=== PATIENT | male | born 1950 | race African-American/Black ===

== ENCOUNTER 2018-10-30 13:10 | Outpatient (CLI) | payer OTHER ==
--- NOTE | 2018-10-30 14:26 | Diagnostic Imaging Report ---
Indication: Cough Technique: XRAY Chest 2v Comparison: 11/16/2011 Findings: Heart size and mediastinal contours stable compared to the prior exam. There is unchanged linear opacity in the right midlung. No new focal airspace consolidation to suggest pneumonia as questioned clinically. No evidence of pleural effusion or pneumothorax. There is a 1.2 cm apparent rounded density in the upper right lung on frontal view only which may be artifactual related to overlying anterior first rib. No acute osseous abnormality identified. IMPRESSION: Subtle linear atelectasis or scarring in the right midlung. Otherwise no definite focal airspace consolidation. No pleural effusion or pneumothorax. Apparent 1.2 cm rounded density in the right upper lung on frontal view which may be artifactual related to overlying anterior first rib. Consider CT chest to exclude the possibility of pulmonary nodule.
== END 2018-10-30 15:10 | disposition home or self-care (01) ==
LOC: RAD 13:10
DX: R05 Cough (principal)
CPT/HCPCS: 71046

== ENCOUNTER 2018-11-28 15:04 | Outpatient (CLI) | payer MEDICARE, OTHER ==
[~2018-11-28] VITALS: Ht 175.3 cm; Wt 91.6 kg
[2018-11-28 15:15] VITALS: BP 118/48
[2018-11-28] MEDS ORDERED: FERROUS SULFAT325 MG ORAL (16:10)
[2018-11-28] MEDS ORDERED: FUROSEMIDE40 MG ORAL (16:10)
[2018-11-28] MEDS ORDERED: COLACE100 MG ORAL (16:10)
[2018-11-28] MEDS ORDERED: ALLOPURINOL100 M1 ORAL (16:10)
[2018-11-28] MEDS ORDERED: CARAFATE1 G1 ORAL (16:10)
[2018-11-28] MEDS ORDERED: VITAMIN D400 INTLU ORAL (16:10)
[2018-11-28] MEDS ORDERED: INDERAL20 MG GT (16:10)
[2018-11-28] MEDS ORDERED: PANTOPRAZOLE SO20 MG ORAL (16:10)
[2018-11-28] MEDS ORDERED: OS-CAL1250 MG GT (16:10)
--- NOTE | 2018-11-28 16:15 | GI Initial Consult Note ---
History of Present Illness General Date patient seen: Nov 28, 2018 Time patient seen: 16:02 Referring physician: SERGEY Reason for Consultation: Anemia secondary to GI bleed Present Illness HPI This is a 68-year-old male patient with a history of cirrhosis, history of varices, history of GI bleed requiring multiple transfusions. 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 The patient had an upper endoscopy back in October 2018 and was noted to have multiple bleeding angiectasias in the stomach which was treated with APC. September 2018, the patient underwent a colonoscopy was notable for 1 5 mm polyp. The patient presents today with anemia with low hemoglobin level, documented hemoglobin 6.5 on November 01, 2016. Denies any unintentional weight loss or changes in dietary habits. No signs of abuse or neglect. Patient is not fall risk. Allergies: Coded Allergies: No Known Allergies (Verified , 11/17/11) Patient History PMH Narrative See HPI Past Surgical History: other - See HPI Pertinent Family History: none Social History: Reports: alcohol use Review of Systems All Other Systems: negative except mentioned in HPI Physical Exam Blood pressure 118/48 Height 5 9 Weight 202 pounds, stated weight loss from 210 pounds. Sp02 EP Interpretation: reviewed, normal General Appearance: well appearing, no apparent distress, alert Head: normocephalic EENT: PERRL/EOMI, normal ENT inspection Neck: supple Respiratory: normal breath sounds, no respiratory distress Cardiovascular: normal rate Gastrointestinal: normal inspection, non tender, soft, normal bowel sounds, non -distended Rectal: deferred Genitourinary: deferred Musculoskeletal: normal inspection, back normal Neurologic: normal inspection, alert, oriented x3, responsive Psychiatric: normal inspection, judgement/insight normal, memory normal Skin: normal inspection, normal color, no rash, warm/dry, palpation normal, well hydrated Lymphatic: normal inspection, no adenopathy GI: Plan Problems: (1) Cirrhosis (2) Anemia (3) Umbilical hernia (4) Asthma (5) Diabetes mellitus (6) Gout (7) Hepatitis C (8) Esophageal varices (9) GI bleed Plan Patient instructed to go to the emergency room given severe anemia We will schedule for endoscopy Patient instructed to be n.p.o. at midnight Patient sent downstairs to obtain OB stool Hold all blood thinners tonight May need small bowel capsule endoscopy in the future We will follow with additional recommendations post procedure Discussed with Dr. Potter. Thank you for this patient referral, we will follow. The patient was seen and examined at bedside and all new and available data was reviewed in the patients chart. I agree with the above findings, impression and plan. (Patient seen earlier today. Signature stamp does not reflect patient encounter time.). - MD Lyubov FontanezSoutheast [facility] Medical CenterWes[facility] CERTIFIED INDUSTRIAL HYGIENIST Nov 28, 2018 16:15
[2018-11-29] MEDS ORDERED: METHADONE HCL40 M1 PO (10:47)
[2018-11-29] MEDS ORDERED: KADIAN20 M1 PO (10:47)
[2018-11-29] MEDS ORDERED: OXYCODONE H5 MG/5 ML ORAL (10:47)
[2018-11-29] MEDS ORDERED: ROXICODONE5 MG ORAL (10:52)
== END 2018-11-28 15:34 | disposition home or self-care (01) ==
LOC: PAN 15:04
DX: D64.89 Other specified anemias (principal); K92.2 Gastrointestinal hemorrhage, unspecified; K74.60 Unspecified cirrhosis of liver; K42.9 Umbilical hernia without obstruction or gangrene; J45.909 Unspecified asthma, uncomplicated; E11.9 Type 2 diabetes mellitus without complications; M10.9 Gout, unspecified; K75.89 Other specified inflammatory liver diseases
CPT/HCPCS: 99203

== ENCOUNTER 2018-11-29 10:39 | Emergency (ER) | payer MEDICARE, OTHER ==
[~2018-11-29] VITALS: Ht 172.7 cm; Wt 91.6 kg
[~2018-11-29 10:39] MED LIST: ALLOPURINOL100 M1 ORAL; CARAFATE1 G1 ORAL; COLACE100 MG ORAL; FERROUS SULFAT325 MG ORAL; FUROSEMIDE40 MG ORAL; INDERAL20 MG ORAL; OS-CAL1250 MG ORAL; PANTOPRAZOLE SO20 MG ORAL; VITAMIN D400 INTLU ORAL
[2018-11-29] MEDS ORDERED: KADIAN20 M1 PO (10:47)
[2018-11-29] MEDS ORDERED: METHADONE HCL40 M1 PO (10:47)
[2018-11-29] MEDS ORDERED: OXYCODONE H5 MG/5 ML ORAL (10:47)
[2018-11-29] MEDS ORDERED: ROXICODONE5 MG ORAL (10:52)
[2018-11-29] MEDS ORDERED: Pantoprazole Inj IV ONE (11:00)
--- NOTE | 2018-11-29 11:13 | NUR ---
ED Nurse Note:pt. came with snemia, blood sent to labs
[2018-11-29 11:31] LABS: HEMOGLOBIN 8.2 G/DL (14.2-18.0); MEAN CORPUSCULAR VOLUME 98 FL (80-99); PLATELET COUNT 36 K/UL (150-450); RED BLOOD COUNT 2.84 M/UL (4.70-6.10); RED CELL DISTRIBUTION WIDTH 16.8 % (11.6-14.8); WHITE BLOOD COUNT 2.3 K/UL (4.8-10.8)
[2018-11-29 11:34] LABS: INR 1.1 (0.9-1.1)
[2018-11-29 11:36] LABS: ANION GAP 8 mmol/L (5-15); BLOOD UREA NITROGEN 42 mg/dL (7-18); CALCIUM 8.6 MG/DL (8.5-10.1); CARBON DIOXIDE 28 MMOL/L (21-32); CHLORIDE 105 MMOL/L (98-107); CREATININE 2.3 MG/DL (0.55-1.30); POTASSIUM 4.9 MMOL/L (3.5-5.1); SODIUM 141 MMOL/L (136-145)
[2018-11-29 11:39] VITALS: BP_SYST 120; BP_SYST 124; BP_SYST 138; BP_DIAS 61; BP_DIAS 64
[2018-11-29 11:40] LABS: ALANINE AMINOTRANSFERASE 29 U/L (12-78); ALBUMIN/GLOBULIN RATIO 0.7 (1.0-2.7); ALKALINE PHOSPHATASE 181 U/L (46-116); ASPARTATE AMINO TRANSFERASE 69 U/L (15-37); BILIRUBIN,TOTAL 0.6 MG/DL (0.2-1.0)
[2018-11-29 11:41] VITALS: BP 124/64
--- NOTE | 2018-11-29 11:42 | NUR ---
ED Nurse Note:orthostatic VS done and documented
--- NOTE | 2018-11-29 12:02 | Diagnostic Imaging Report ---
Indication: Shortness of breath Technique: One view of the chest Comparison: 10/30/2018 Findings: Heart is borderline enlarged. The lungs pleural spaces are clear. Note that the cardiomegaly is not evident previously Impression: Borderline cardiomegaly. No acute process
[2018-11-29 12:14] LABS: APPEARANCE,URINE CLEAR; BILIRUBIN, URINE NEGATIVE (NEGATIVE); GLUCOSE, URINE (UA) NEGATIVE (NEGATIVE); KETONES,URINE 1+ (NEGATIVE); LEUKOCYTE ESTERASE ,URINE 1+ (NEGATIVE); NITRITE,URINE NEGATIVE (NEGATIVE); PH,URINE 7 (4.5-8.0); PROTEIN,URINE NEGATIVE (NEGATIVE); UROBILINOGEN,URINE 4 MG/DL (0.0-1.0)
[2018-11-29 12:26] LABS: COLOR,URINE YELLOW
[2018-11-29 13:01] VITALS: BP 126/60
[2018-11-29 13:05] VITALS: BP 126/60
--- NOTE | 2018-11-29 13:07 | NUR ---
ED Nurse Note:pt. refused to be admitted to the hospital, ER MD spoke to PT. about that , pt. verbalized understanding of his responsibilities he signed AMA form and left ER with steady gait and all personal belongings, A/Ox4
--- NOTE | 2018-11-29 16:12 | Emergency Room Report ---
History of Present Illness General Chief Complaint: Gastrointestinal Bleed Source: Patient, Medical Record Present Illness HPI Patient presents with black tarry stools for 2 days. He claims his hemoglobin was checked recently and was 7. Feels some weakness when he stands. He denies any vomiting or nausea. Does drink alcohol was last drinking yesterday. He states he drinks beer. He denies abdominal pain. His doctor sent him here for evaluation and possible transfusions. The patient was seen at [facility] last week and his hemoglobin was 7. He was told that he needed to take iron. He has been taking iron tablets. No fevers, chills, chest pain, palpitations, nausea, vomiting, diarrhea, dysuria , abdominal pain, shortness of breath, depression, visual changes, headache. 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 He has received blood transfusions in the past has a history of thrombocytopenia. History of hepatitis C. Allergies: Coded Allergies: No Known Allergies (Verified , 11/17/11) Patient History Past Medical History: see triage record Social History: Reports: alcohol use; Denies: smoking Social History Narrative From home Reviewed Nursing Documentation: PMH: Agreed; PSxH: Agreed Nursing Documentation-PMH Hx Cardiac Problems: No Hx Asthma: Yes Hx Diabetes: Yes Hx Cancer: No Hx Gastrointestinal Problems: Yes Hx Neurological Problems: No Review of Systems All Other Systems: negative except mentioned in HPI Physical Exam Vital Signs Date Time Temp Pulse Resp B/P (MAP) Pulse Ox O2 Delivery O2 Flow Rate FiO2 11/29/18 10:43 98.4 81 19 140/66 96 Room Air Sp02 EP Interpretation: reviewed, normal General Appearance: well appearing, no apparent distress, GCS 15 Head: normocephalic Eyes: bilateral eye PERRL, bilateral eye conjunctivae pale ENT: moist mucus membranes Neck: supple Respiratory: lungs clear, normal breath sounds Cardiovascular #1: regular rate, rhythm, edema - Hands and lower extremities 1- 2+ Cardiovascular #2: 2+ radial (R) Gastrointestinal: normal inspection, normal bowel sounds, non tender, no mass, non-distended Musculoskeletal: back normal, gait/station normal, normal range of motion Neurologic: alert, oriented x3, grossly normal Psychiatric: mood/affect normal Skin: warm/dry, pallor Medical Decision Making Diagnostic Impression: Primary Impression: Gastrointestinal hemorrhage Qualified Codes: K92.2 - Gastrointestinal hemorrhage, unspecified Additional Impressions: Anemia Qualified Codes: D64.89 - Other specified anemias Renal failure Qualified Codes: N17.9 - Acute kidney failure, unspecified Thrombocytopenia Alcohol abuse ER Course Patient presents with dark stools and history of anemia with prior GI bleed. Differential includes esophageal varices, AV malformation bleed, gastritis, peptic ulcer disease amongst others. Evaluation with EKG, labs. Orthostatics will be performed. Most likely the patient will need to be transfused based on his history. Protonix is ordered. From the start the patient states he does not want to come into the hospital. Labs significant for anemia. Hemoglobin is higher than what was expected. He also has thrombocytopenia. BUN and creatinine are elevated. This is an acute change from prior levels. (The patient denies prior renal dysfunction.) We are arranging for admission and blood transfusion. The patient refuses to be admitted. He was informed that he could from bleeding and also was informed of the acute renal failure. He still insisted on going home. He stated he consider returning on Sunday. He did not state why he had to go home but insisted on this. The patient signed AGAINST MEDICAL ADVICE to leave. He was told that he could return at any time to be admitted to the hospital for transfusions and further evaluation. His private physician was notified of his decision to leave AGAINST MEDICAL ADVICE. Laboratory Tests Test 11/29/18 11:10 11/29/18 11:50 White Blood Count 2.3 K/UL (4.8-10.8) L Red Blood Count 2.84 M/UL (4.70-6.10) L Hemoglobin 8.2 G/DL (14.2-18.0) L Hematocrit 28.0 % (42.0-52.0) L Mean Corpuscular Volume 98 FL (80-99) Mean Corpuscular Hemoglobin 28.9 PG (27.0-31.0) Mean Corpuscular Hemoglobin Concent 29.4 G/DL (32.0-36.0) L Red Cell Distribution Width 16.8 % (11.6-14.8) H Platelet Count 36 K/UL (150-450) L Mean Platelet Volume 12.2 FL (6.5-10.1) H Neutrophils (%) (Auto) % (45.0-75.0) Lymphocytes (%) (Auto) % (20.0-45.0) Monocytes (%) (Auto) % (1.0-10.0) Eosinophils (%) (Auto) % (0.0-3.0) Basophils (%) (Auto) % (0.0-2.0) Differential Total Cells Counted 100 Neutrophils % (Manual) 81 % (45-75) H Lymphocytes % (Manual) 14 % (20-45) L Monocytes % (Manual) 4 % (1-10) Eosinophils % (Manual) 1 % (0-3) Basophils % (Manual) 0 % (0-2) Band Neutrophils 0 % (0-8) Platelet Estimate Decreased L Platelet Morphology Normal Hypochromasia 2+ Anisocytosis 1+ Prothrombin Time 11.5 SEC (9.30-11.50) Prothrombin Time INR 1.1 (0.9-1.1) PTT 20 SEC (23-33) L Sodium Level 141 MMOL/L (136-145) Potassium Level 4.9 MMOL/L (3.5-5.1) Chloride Level 105 MMOL/L (98-107) Carbon Dioxide Level 28 MMOL/L (21-32) Anion Gap 8 mmol/L (5-15) Blood Urea Nitrogen 42 mg/dL (7-18) H Creatinine 2.3 MG/DL (0.55-1.30) H Estimate Glomerular Filtration Rate 34.3 mL/min (>60) Glucose Level 197 MG/DL (74-106) H Calcium Level 8.6 MG/DL (8.5-10.1) Total Bilirubin 0.6 MG/DL (0.2-1.0) Aspartate Amino Transferase (AST) 69 U/L (15-37) H Alanine Aminotransferase (ALT) 29 U/L (12-78) Alkaline Phosphatase 181 U/L (46-116) H Troponin I 0.009 ng/mL (0.000-0.056) Total Protein 7.5 G/DL (6.4-8.2) Albumin 3.0 G/DL (3.4-5.0) L Globulin 4.5 g/dL Albumin/Globulin Ratio 0.7 (1.0-2.7) L Lipase 343 U/L (73-393) Urine Color Yellow Urine Appearance Clear Urine pH 7 (4.5-8.0) Urine Specific [place] 1.005 (1.005-1.035) Urine Protein Negative (NEGATIVE) Urine Glucose (UA) Negative (NEGATIVE) Urine Ketones 1+ (NEGATIVE) H Urine Blood Negative (NEGATIVE) Urine Nitrite Negative (NEGATIVE) Urine Bilirubin Negative (NEGATIVE) Urine Urobilinogen 4 MG/DL (0.0-1.0) H Urine Leukocyte Esterase 1+ (NEGATIVE) H Urine RBC 0 /HPF (0 - 0) Urine WBC 0-2 /HPF (0 - 0) Urine Squamous Epithelial Cells Occasional /LPF Urine Bacteria Occasional /HPF (NONE) EKG Diagnostic Results Rate: tachycardiac Rhythm: NSR ST Segments: no acute changes Rhythm Strip Diag. Results EP Interpretation: yes Rhythm: NSR, no PVC's, no ectopy Chest X-Ray Diagnostic Results Chest X-Ray Diagnostic Results : Chest X-Ray Ordered: Yes # of Views/Limited/Complete: 1 View Indication: Other EP Interpretation: Yes Interpretation: no consolidation, no effusion, no pneumothorax Impression: No acute disease Electronically Signed by: Electronically signed by Santos Garcia MD Last Vital Signs Date Time Temp Pulse Resp B/P (MAP) Pulse Ox O2 Delivery O2 Flow Rate FiO2 11/29/18 13:05 98.4 71 14 126/60 99 Room Air 76 Status: unchanged Disposition: AGAINST MEDICAL ADVICE Condition: Serious Referrals: Meño Potter MD (PCP) Santos Garcia MD Nov 29, 2018 16:12
[2018-12-23] MEDS ORDERED: METFORMIN HCL500 M1 ORAL (08:45)
[2018-12-26] MEDS ORDERED: LACTULOSE10 GM/153 PO (09:46)
[2018-12-26] MEDS ORDERED: XIFAXAN550 MG ORAL (09:46)
== END 2018-11-29 13:14 | disposition left against medical advice (07) ==
LOC: EMR 11:12
DX: K92.2 Gastrointestinal hemorrhage, unspecified (principal); D64.9 Anemia, unspecified; E11.9 Type 2 diabetes mellitus without complications; J45.909 Unspecified asthma, uncomplicated; N19 Unspecified kidney failure; D69.6 Thrombocytopenia, unspecified; F10.10 Alcohol abuse, uncomplicated
CPT/HCPCS: 36415; 71045; 80053; 81003; 83690; 84484; 85007; 85025; 85610; 85730; 86850; 86900; 86901; 96374; 99284; C9113

== ENCOUNTER 2018-12-19 13:47 | Outpatient (CLI) | payer MEDICARE, OTHER ==
[~2018-12-19 13:47] MED LIST changes: +KADIAN20 M1 PO; +METHADONE HCL40 M1 PO; +OXYCODONE H5 MG/5 ML ORAL; +ROXICODONE5 MG ORAL
--- NOTE | 2018-12-19 14:08 | General Progress Note ---
Assessment/Plan Problem List: (1) Anemia ICD Codes: D64.9 - Anemia, unspecified SNOMED: 914969241 (2) Alcohol abuse ICD Codes: F10.10 - Alcohol abuse, uncomplicated SNOMED: 54204016 (3) Hepatitis C ICD Codes: B19.20 - Unspecified viral hepatitis C without hepatic coma SNOMED: 42130044 (4) GI bleed ICD Codes: K92.2 - Gastrointestinal hemorrhage, unspecified SNOMED: 60430267 (5) Umbilical hernia ICD Codes: K42.9 - Umbilical hernia without obstruction or gangrene SNOMED: 910094103 (6) Diabetes mellitus ICD Codes: E11.9 - Type 2 diabetes mellitus without complications SNOMED: 77030324 Assessment/Plan feeling over all better wants EGD on Sunday fu post EGd for management of other GI problems Subjective ROS Limited/Unobtainable: Yes Allergies: Coded Allergies: No Known Allergies (Verified , 11/17/11) Objective General Appearance: alert EENT: normal ENT inspection Neck: supple Cardiovascular: normal rate Respiratory/Chest: lungs clear Abdomen: normal bowel sounds, non tender, soft Extremities: non-tender Meño Potter MD Dec 19, 2018 14:07
[2018-12-23] MEDS ORDERED: METFORMIN HCL500 M1 ORAL (08:45)
[2018-12-26] MEDS ORDERED: XIFAXAN550 MG ORAL (09:46)
[2018-12-26] MEDS ORDERED: LACTULOSE10 GM/153 PO (09:46)
== END 2018-12-19 14:17 | disposition home or self-care (01) ==
LOC: PAN 13:47
DX: D64.9 Anemia, unspecified (principal); F10.10 Alcohol abuse, uncomplicated; B19.20 Unspecified viral hepatitis C without hepatic coma; K92.2 Gastrointestinal hemorrhage, unspecified; K42.9 Umbilical hernia without obstruction or gangrene; E11.9 Type 2 diabetes mellitus without complications

== ENCOUNTER 2019-01-08 11:17 | Inpatient (IN) | payer MEDICARE, OTHER ==
[~2019-01-08] VITALS: Ht 175.3 cm; Wt 89.4 kg
[~2019-01-08 11:17] MED LIST changes: +LACTULOSE10 GM/153 PO; +METFORMIN HCL500 M1 ORAL; +XIFAXAN550 MG ORAL
[2019-01-08] MEDS ORDERED: GENERLAC10 GM/151 PO (11:27)
[2019-01-08] MEDS ORDERED: FUROSEMIDE40 MG ORAL (11:27)
[2019-01-08 11:30] VITALS: BP 115/64
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
[2019-01-08] MEDS ORDERED: Pantoprazole Inj IVP ONE (11:45)
[2019-01-08 11:56] LABS: HEMATOCRIT 25.2 % (42.0-52.0); HEMOGLOBIN 7.6 G/DL (14.2-18.0); MEAN CORPUSCULAR VOLUME 91 FL (80-99); PLATELET COUNT 73 K/UL (150-450); RED BLOOD COUNT 2.76 M/UL (4.70-6.10); RED CELL DISTRIBUTION WIDTH 16.8 % (11.6-14.8); WHITE BLOOD COUNT 2.9 K/UL (4.8-10.8)
[2019-01-08 12:06] LABS: ANION GAP 6 mmol/L (5-15); BLOOD UREA NITROGEN 50 mg/dL (7-18); CALCIUM 8.7 MG/DL (8.5-10.1); CARBON DIOXIDE 31 MMOL/L (21-32); CHLORIDE 102 MMOL/L (98-107); CREATININE 3.1 MG/DL (0.55-1.30); INR 1.1 (0.9-1.1); POTASSIUM 4.8 MMOL/L (3.5-5.1); SODIUM 139 MMOL/L (136-145)
[2019-01-08 12:11] LABS: ALANINE AMINOTRANSFERASE 28 U/L (12-78); ALBUMIN 2.8 G/DL (3.4-5.0); ALBUMIN/GLOBULIN RATIO 0.7 (1.0-2.7); ALKALINE PHOSPHATASE 169 U/L (46-116); ASPARTATE AMINO TRANSFERASE 33 U/L (15-37); BILIRUBIN,TOTAL 0.6 MG/DL (0.2-1.0)
[2019-01-08 12:44] VITALS: BP 103/69
--- NOTE | 2019-01-08 13:26 | GI Initial Consult Note ---
History of Present Illness General Date patient seen: Jan 08, 2019 Time patient seen: 13:19 Reason for Hospitalization: Abnormal Labs Referring physician: SERGEY Reason for Consultation: ANEMIA Present Illness HPI The patient is a very pleasant 68-year-old gentleman with history of cirrhosis, history of diabetes, history of GI bleed requiring transfusions due to AVMs of the transverse colon, status post PEG, and history of rectal varices, followed by Dr. Kirk of Hematology. Patient has a history of a recent endoscopy performed on December 25, 2017 noted with a summary of findings below. Pathology reports benign gastric mucosa, negative for H. pylori. The patient recently had a blood draw approximately 2 days ago in his primary care office. Hemoglobin level at the time was 6.9 and the patient was advised to go to the emergency room. Patient seen, awake alert and oriented x4 no apparent distress. Patient is asymptomatic at this time; denies any abdominal pain, denies any nausea vomiting or diarrhea or any noted active bleeding. CBC was done in the emergency room, noted with a hemoglobin of 7.6. SUMMARY OF FINDINGS: 1. Small esophageal varices. 2. Multiple lesions in the antrum, see above for details, status post biopsy. Home Meds Reported Medications Furosemide* (LASIX*) 40 Mg Tablet, 40 MG ORAL PRN, TAB 01/08/19 Lactulose (GENERLAC) 10 Gm/15 Ml Solution, 10 GM PO 01/08/19 Lactulose (LACTULOSE) 10 Gm/15 Ml Solution, 10 GM PO TID 12/26/18 Rifaximin* (XIFAXAN*) 550 Mg Tablet, 550 MG ORAL Q12HR for 30 Days, MG 0 Refills 12/26/18 Methadone Hcl (METHADONE HCL) 40 Mg Tablet.filippo, 45 MG PO, TAB 11/29/18 Morphine Sulfate (CHIDI) 20 Mg Cap.er.pel, 15 MG PO, CAP 11/29/18 Furosemide* (LASIX*) 40 Mg Tablet, 40 MG ORAL DAILY, TAB 11/28/18 Pantoprazole (PANTOPRAZOLE) 20 Mg Tablet.dr, 20 MG ORAL DAILY, #10 TAB 0 Refills 11/28/18 Sucralfate* (CARAFATE*) 1 Gm Tablet, 1 GM ORAL FOUR TIMES A DAY, TAB 11/28/18 Propranolol HCl (Propranolol HCl) 20 Mg Tablet, 20 MG ORAL DAILY, TAB 11/28/18 Ferrous Sulfate* (FERROUS SULFATE*) 325 Mg Tablet, 325 MG ORAL DAILY, #30 TAB 0 Refills 11/28/18 Vitamin D (Vitamin D3) 400 Unit Tablet, 400 UNITS ORAL DAILY, TAB 11/28/18 Calcium Carbonate (Calcium Carbonate) 500 Mg Tablet, 1250 MG ORAL, TAB 11/28/18 Allopurinol* (ALLOPURINOL*) 100 Mg Tablet, 100 MG ORAL DAILY, TAB 11/28/18 Med list reviewed/reconciled: Yes Allergies: Coded Allergies: No Known Allergies (Verified , 01/08/19) Patient History Limited by: medical condition History Provided By: Patient PMH Narrative Includes a history of alcoholic cirrhosis, history of anemia secondary to GI bleed, history of asthma, history of chronic back pain, history of diabetes mellitus type 2, history of gout, history of umbilical hernia, history of chronic pain, history of bleeding gastritis, history of AVMs and history of rectal varices. He also sees pain management. He is chronically on methadone. Social History: Denies: smoking, alcohol use, drug use, other Review of Systems All Other Systems: negative except mentioned in HPI Physical Exam Vital Signs Date Time Temp Pulse Resp B/P (MAP) Pulse Ox O2 Delivery O2 Flow Rate FiO2 01/08/19 11:21 98.1 80 16 116/55 97 Room Air Sp02 EP Interpretation: reviewed, normal Labs Laboratory Tests Test 01/08/19 11:30 White Blood Count 2.9 K/UL (4.8-10.8) L Red Blood Count 2.76 M/UL (4.70-6.10) L Hemoglobin 7.6 G/DL (14.2-18.0) L Hematocrit 25.2 % (42.0-52.0) L Mean Corpuscular Volume 91 FL (80-99) Mean Corpuscular Hemoglobin 27.6 PG (27.0-31.0) Mean Corpuscular Hemoglobin Concent 30.3 G/DL (32.0-36.0) L Red Cell Distribution Width 16.8 % (11.6-14.8) H Platelet Count 73 K/UL (150-450) L Mean Platelet Volume 11.9 FL (6.5-10.1) H Neutrophils (%) (Auto) % (45.0-75.0) Lymphocytes (%) (Auto) % (20.0-45.0) Monocytes (%) (Auto) % (1.0-10.0) Eosinophils (%) (Auto) % (0.0-3.0) Basophils (%) (Auto) % (0.0-2.0) Differential Total Cells Counted 100 Neutrophils % (Manual) 76 % (45-75) H Lymphocytes % (Manual) 18 % (20-45) L Monocytes % (Manual) 6 % (1-10) Eosinophils % (Manual) 0 % (0-3) Basophils % (Manual) 0 % (0-2) Band Neutrophils 0 % (0-8) Platelet Estimate Decreased L Platelet Morphology Normal Hypochromasia 1+ Anisocytosis 1+ Prothrombin Time 11.8 SEC (9.30-11.50) H Prothromb Time International Ratio 1.1 (0.9-1.1) Activated Partial Thromboplast Time 28 SEC (23-33) Sodium Level 139 MMOL/L (136-145) Potassium Level 4.8 MMOL/L (3.5-5.1) Chloride Level 102 MMOL/L (98-107) Carbon Dioxide Level 31 MMOL/L (21-32) Anion Gap 6 mmol/L (5-15) Blood Urea Nitrogen 50 mg/dL (7-18) H Creatinine 3.1 MG/DL (0.55-1.30) H Estimat Glomerular Filtration Rate 24.2 mL/min (>60) Glucose Level 263 MG/DL (74-106) H Calcium Level 8.7 MG/DL (8.5-10.1) Total Bilirubin 0.6 MG/DL (0.2-1.0) Aspartate Amino Transf (AST/SGOT) 33 U/L (15-37) Alanine Aminotransferase (ALT/SGPT) 28 U/L (12-78) Alkaline Phosphatase 169 U/L (46-116) H Total Protein 7.1 G/DL (6.4-8.2) Albumin 2.8 G/DL (3.4-5.0) L Globulin 4.3 g/dL Albumin/Globulin Ratio 0.7 (1.0-2.7) L Lipase 372 U/L (73-393) General Appearance: well appearing, no apparent distress, alert Head: normocephalic EENT: PERRL/EOMI, normal ENT inspection Neck: supple Respiratory: normal breath sounds, no respiratory distress Cardiovascular: normal rate Gastrointestinal: normal inspection, non tender, soft, normal bowel sounds, non -distended, other - Abdominal bloating Rectal: deferred Genitourinary: deferred Musculoskeletal: normal inspection, back normal Neurologic: normal inspection, alert, oriented x3, responsive Psychiatric: normal inspection, judgement/insight normal, memory normal Skin: normal inspection, normal color, no rash, warm/dry, palpation normal, well hydrated Lymphatic: normal inspection, no adenopathy GI: Plan Problems: (1) Hepatitis C (2) GI bleed (3) Thrombocytopenia (4) Esophageal varices (5) Cirrhosis (6) Anemia (7) Gastrointestinal hemorrhage Plan Status post EGD summary of findings 1. Small esophageal varices. 2. Multiple lesions in the antrum, see above for details, status post biopsy. -Benign gastric mucosa and negative for H. pylori noted at the patient's baseline hemoglobin is approximately 8 no plans for GI procedures at this time Transfuse blood and now, 1 hour post a CBC Obtain occult blood stool if possible advance diet PPI Follow-up with us as outpatient Discussed with Dr. Potter. Thank you for this patient referral, we will follow. The patient was seen and examined at bedside and all new and available data was reviewed in the patients chart. I agree with the above findings, impression and plan. (Patient seen earlier today. Signature stamp does not reflect patient encounter time.). - MD Lyubov Fontanez,[facility] SEBASTIAN Jan 08, 2019 13:26
--- NOTE | 2019-01-08 14:01 | NUR ---
ED Nurse Note: report givent to Cipriano HUNTLEY at 4E, endorsed that 1st bag of PRBC is started patient is tolerating PRBC without any complication, a/o x4, vss.
[2019-01-08 14:24] VITALS: BP 116/52
--- NOTE | 2019-01-08 14:28 | Emergency Room Report ---
History of Present Illness General Chief Complaint: Abnormal Labs Source: Patient Present Illness HPI 68-year-old male referred to ED for evaluation. Patient was told that his hemoglobin was low. Labs drawn showed hemoglobin of 6.9. Has history of GI bleed. States he was admitted here a few weeks ago and had scope done. Patient states baseline hemoglobin is around 8. States he feels fine. Denies nausea or vomiting. Denies blood in stool. Denies dizziness or weakness. No other aggravating relieving factors. Denies any other associated symptoms Allergies: Coded Allergies: No Known Allergies (Verified , 01/08/19) Patient History Past Medical History: DM, HTN, GERD, GI bleed Past Surgical History: none Pertinent Family History: none Social History: Denies: smoking, alcohol use, drug use Immunizations: UTD Reviewed Nursing Documentation: PMH: Agreed; PSxH: Agreed Nursing Documentation-PMH Past Medical History: No History, Except For Hx Cardiac Problems: No Hx Hypertension: Yes Hx Asthma: Yes Hx Diabetes: Yes Hx Cancer: No Hx Gastrointestinal Problems: Yes - HX OF GI BLEED Hx Neurological Problems: No Review of Systems All Other Systems: negative except mentioned in HPI Physical Exam Vital Signs Date Time Temp Pulse Resp B/P (MAP) Pulse Ox O2 Delivery O2 Flow Rate FiO2 01/08/19 11:21 98.1 80 16 116/55 97 Room Air Sp02 EP Interpretation: reviewed, normal General Appearance: no apparent distress, alert, GCS 15, non-toxic Head: normocephalic, atraumatic Eyes: bilateral eye normal inspection, bilateral eye PERRL ENT: hearing grossly normal, normal pharynx, no angioedema, normal voice Neck: full range of motion, supple/symm/no masses Respiratory: chest non-tender, lungs clear, normal breath sounds, speaking full sentences Cardiovascular #1: regular rate, rhythm, no edema Cardiovascular #2: 2+ carotid (R), 2+ carotid (L), 2+ radial (R), 2+ radial (L) , 2+ dorsalis pedis (R), 2+ dorsalis pedis (L) Gastrointestinal: normal bowel sounds, non tender, soft, non-distended, no guarding, no rebound Rectal: deferred Genitourinary: normal inspection, no CVA tenderness Musculoskeletal: back normal, gait/station normal, normal range of motion, non- tender Neurologic: alert, oriented x3, responsive, motor strength/tone normal, sensory intact, speech normal Psychiatric: judgement/insight normal, memory normal, mood/affect normal, no suicidal/homicidal ideation Reflexes: 3+ bicep (R), 3+ bicep (L), 3+ tricep (R), 3+ tricep (L), 3+ knee (R) , 3+ knee (L) Skin: normal color, no rash, warm/dry, well hydrated Lymphatic: no adenopathy Medical Decision Making Diagnostic Impression: Primary Impression: UGIB (upper gastrointestinal bleed) Additional Impressions: Anemia Qualified Codes: D64.9 - Anemia, unspecified Renal insufficiency ER Course Hospital Course 68 yo M presents to ED for low Hb. 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 After initial history and physical I ordered labs, IV fluids, UA Labs - leukopenia noted, Hb 7.6, BUN/Cr elevated PRBCs ordered. GI at bedside to evaluate patient. no indication for emergent endoscopy at this itime Case discussed with Dr. Stroud and he agreed to accept the patient to his service for further care and support I feel this is a highly complex case requiring extensive working including EKG/ Rhythm strip, Xray/CT/US, Blood/urine lab work, repeat exams while in ED, and administration of strong opiates/narcotics for pain control, admission to hospital or close patient follow up. Diagnosis - UGIB, anemia, renal insufficiency Patient admitted to floor in serious condition Labs Test 01/08/19 11:30 White Blood Count 2.9 K/UL (4.8-10.8) Red Blood Count 2.76 M/UL (4.70-6.10) Hemoglobin 7.6 G/DL (14.2-18.0) Hematocrit 25.2 % (42.0-52.0) Mean Corpuscular Volume 91 FL (80-99) Mean Corpuscular Hemoglobin 27.6 PG (27.0-31.0) Mean Corpuscular Hemoglobin Concent 30.3 G/DL (32.0-36.0) Red Cell Distribution Width 16.8 % (11.6-14.8) Platelet Count 73 K/UL (150-450) Mean Platelet Volume 11.9 FL (6.5-10.1) Neutrophils (%) (Auto) % (45.0-75.0) Lymphocytes (%) (Auto) % (20.0-45.0) Monocytes (%) (Auto) % (1.0-10.0) Eosinophils (%) (Auto) % (0.0-3.0) Basophils (%) (Auto) % (0.0-2.0) Differential Total Cells Counted 100 Neutrophils % (Manual) 76 % (45-75) Lymphocytes % (Manual) 18 % (20-45) Monocytes % (Manual) 6 % (1-10) Eosinophils % (Manual) 0 % (0-3) Basophils % (Manual) 0 % (0-2) Band Neutrophils 0 % (0-8) Platelet Estimate Decreased Platelet Morphology Normal Hypochromasia 1+ Anisocytosis 1+ Prothrombin Time 11.8 SEC (9.30-11.50) Prothromb Time International Ratio 1.1 (0.9-1.1) Activated Partial Thromboplast Time 28 SEC (23-33) Sodium Level 139 MMOL/L (136-145) Potassium Level 4.8 MMOL/L (3.5-5.1) Chloride Level 102 MMOL/L (98-107) Carbon Dioxide Level 31 MMOL/L (21-32) Anion Gap 6 mmol/L (5-15) Blood Urea Nitrogen 50 mg/dL (7-18) Creatinine 3.1 MG/DL (0.55-1.30) Estimat Glomerular Filtration Rate 24.2 mL/min (>60) Glucose Level 263 MG/DL (74-106) Calcium Level 8.7 MG/DL (8.5-10.1) Total Bilirubin 0.6 MG/DL (0.2-1.0) Aspartate Amino Transf (AST/SGOT) 33 U/L (15-37) Alanine Aminotransferase (ALT/SGPT) 28 U/L (12-78) Alkaline Phosphatase 169 U/L (46-116) Total Protein 7.1 G/DL (6.4-8.2) Albumin 2.8 G/DL (3.4-5.0) Globulin 4.3 g/dL Albumin/Globulin Ratio 0.7 (1.0-2.7) Lipase 372 U/L (73-393) Last Vital Signs Date Time Temp Pulse Resp B/P (MAP) Pulse Ox O2 Delivery O2 Flow Rate FiO2 01/08/19 13:37 98.3 73 10 01/08/19 12:44 103/69 96 Room Air Status: improved Disposition: ADMITTED INPATIENT Condition: Serious Referrals: NOT CHOSEN IPA/,REFERRING (PCP) Tello Rm MD Jan 08, 2019 14:28
--- NOTE | 2019-01-08 14:35 | NUR ---
ED Nurse Note: patient transferred to 4E with EMT with all his belongings.
--- NOTE | 2019-01-08 14:59 | NUR ---
NURSE NOTES: RECEIVED PT IN STABLE CONDITION. STILL RECEIVING FIRST UNIT OF PRBCS. PT TOLERATING WELL. IN NO APPARENT DISTRESS AT THIS TIME. BELONGINGS CHECKED AT BEDSIDE. 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 PT SIGNED RELEASE OF LIABILITY. MANN IV ACCESS ASYMPTOMATIC, PATENT AND INTACT. CALL LIGHT WITHIN REACH. PT STATES HE WILL BE LEAVING TONIGHT AFTER COMPLETION OF BLOOD TRANSFUSIONS. STATES HE HAS ALREADY SPOKEN TO DR YOST REGARDING LEAVING. WILL CONTINUE TO MONITOR.
--- NOTE | 2019-01-08 15:01 | NUR ---
NURSE NOTES: RN LEFT MESSAGE FOR DR RINCON'S OFFICE REGARDING ADMISSION ORDERS.
[2019-01-08 16:00] VITALS: BP 110/42
[2019-01-08] MEDS ORDERED: MS Contin 15mg tab ORAL PRN (16:15)
--- NOTE | 2019-01-08 16:27 | NUR ---
NURSE NOTES: RECEIVED ADMISSION ORDERS FROM DR RINCON. AWARE OF CREATININE LEVEL. MADE AWARE PT STATED HE WILL BE LEAVING TONIGHT. NO NEW ORDERS FOR IVF. WILL CONTINUE TO MONITOR.
--- NOTE | 2019-01-08 17:10 | NUR ---
CASE MANAGEMENT: INITIAL REVIEW 68 YO M PRESENTED TO OUR ED FROM HOME CC: LOW BLOOD. PMHx: DM. HTN. ASTHMA. SI:UPPER GI BLEED. ANEMIA. T 98.1 HR 80 RR 16 B/P 116/55 SATS 97% ON RA WBC 2.9 HGB 7.6 HCT 25.2 BUN 50 CR 3.1 GLU 263 ALP 169 IS: PROTONIX IV X1 PATIENT ADMITTED TO MED/SURG 01/08/2019 @ 2357 DCP: PATIENT TO BE DISCHARGED TO HOME ONCE MEDICALLY CLEARED. PLAN OF CARE: TRANSFUSE 1 UNIT Addendum: 01/08/19 at 1747 by Mayte Soto CM INTERQUAL MET
[2019-01-08] MEDS: Sucralfate 1gm tab ORAL SCH ×2 (17:44→20:33)
[2019-01-08] MEDS ORDERED: Lactulose 10gm/15ml UDC ORAL SCH (18:00)
--- NOTE | 2019-01-08 18:00 | NUR ---
NURSE NOTES: 1 UNIT OF PRBC TRANSFUSION COMPLETED. PT TOLERATED WELL. VSS. STARTED ON SECOND UNIT OF PRBC. RN EDUCTAED ON DR RINCON'S WISHES TO STAY OVERNIGHT DUE TO ELEVATED BUN AND CREATININE LEVELS. PT STATES HE HAS PRIOR ENGAGEMENT AND WILL LEAVE AFTER SECOND UNIT OF PRBC IS COMPLETED. RN EDUCATED PT TO FOLLOW UP WITH PRIMARY DOCTOR REGARDING ELEVATED KIDNEY LEVEL GAMA. PT VERBALIZED UNDERSTANDING. WILL CONTINUE TO MONITOR.
--- NOTE | 2019-01-08 19:20 | NUR ---
NURSE NOTES: Pt received awake, alert and oriented. Pt is resting at this time. Pt is is semi fowlers position with the 2nd bag PRBCs running. Bed is locked in lowest position Vital signs taken and stable at this time. Will continue to monitor pt.
--- NOTE | 2019-01-08 19:26 | NUR ---
HAND-OFF: Report given to Rip RIOS RN.
[2019-01-08 20:33] VITALS: BP 127/58
--- NOTE | 2019-01-08 21:15 | NUR ---
AMA: SEE AMA FORM. Pt was educated about risks of leaving AMA. Acknowledged and verbalized understanding. Pt stated he will follow up with his primary doctor upon discharge. Pt IV site removed. Pt ID band removed prior to leaving. Primary MD aware.
[2019-01-09] MEDS ORDERED: Allopurinol 100mg Tab ORAL SCH (09:00)
[2019-01-09] MEDS ORDERED: Vitamin D 400 INTLU TAB ORAL SCH (09:00)
[2019-01-09] MEDS ORDERED: Propranolol 10mg tab ORAL SCH (09:00)
--- NOTE | 2019-01-09 09:45 | Discharge Summary ---
Discharge Summary Discharge Summary _ DATE OF ADMISSION: 01/08/2019 DATE OF DISCHARGE: 01/08/2019 CONSULTANTS: Dr. 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 Kirk of hematology. Patient has a history of recent endoscopy performed on December 25, 2017 with pathology report negative for H. pylori and benign gastric mucosa. Patient had blood drawn done at the primary care office 2 days prior and hemoglobin was noted to be low. He was then advised to go to the emergency room. On evaluation at ED, vital signs were stable. Blood work showed leukopenia, WBC 2.9, hemoglobin 7, hematocrit 25, platelets 73. Creatinine was elevated to 3.1, BUN 50. He was evaluated by GI at bedside. There was no indication for emergent endoscopy at this time. He was then admitted for upper GI bleed, anemia and renal insufficiency. Patient was admitted under observation. He was given 2 units packed RBC blood transfusion. Full treatment was not carried out as patient left against medical advise. FINAL DIAGNOSES: Anemia requiring 2 units packed RBC blood transfusion Upper GI bleed Renal insufficiency/acute kidney injury Hepatitis C Thrombocytopenia Esophageal varices DISPOSITION: Patient left against medical advise. I have been assigned to complete a discharge summary on this account, I was not involved with the patient's management. Jill Dickerson NP Jan 09, 2019 09:45
--- NOTE | 2019-01-09 09:50 | History & Physical ---
History and Physical History & Physicial Patient left before being seen Jill Dickerson NP Jan 09, 2019 09:49
== END 2019-01-08 21:25 | disposition left against medical advice (07) | DRG 378 ==
LOC: EDBEDREQ 11:39 → EMR 11:59 → 4E 12:55 → EDBEDREQ 13:36
PROC: 30233N1 Transfusion of Nonautologous Red Blood Cells into Peripheral Vein, Percutaneous Approach (ICD-10-PCS; principal; 2019-01-08)
DX: K92.2 Gastrointestinal hemorrhage, unspecified (principal); N17.9 Acute kidney failure, unspecified; D64.9 Anemia, unspecified; B19.20 Unspecified viral hepatitis C without hepatic coma; D69.6 Thrombocytopenia, unspecified; I85.00 Esophageal varices without bleeding; K74.60 Unspecified cirrhosis of liver; K31.9 Disease of stomach and duodenum, unspecified; K70.30 Alcoholic cirrhosis of liver without ascites; Z79.891 Long term (current) use of opiate analgesic; M10.9 Gout, unspecified; G89.29 Other chronic pain; M54.9 Dorsalgia, unspecified
CPT/HCPCS: 36415; 80053; 83690; 85007; 85025; 85610; 85730; 86850; 86900; 86901; 86920; 96374; 99285

== ENCOUNTER 2019-01-23 14:57 | Outpatient (CLI) | payer MEDICARE, OTHER ==
[~2019-01-23 14:57] MED LIST changes: +GENERLAC10 GM/151 PO
--- NOTE | 2019-01-23 15:44 | General Progress Note ---
Assessment/Plan Problem List: (1) Hepatitis C ICD Codes: B19.20 - Unspecified viral hepatitis C without hepatic coma SNOMED: 54747109 (2) GI bleed ICD Codes: K92.2 - Gastrointestinal hemorrhage, unspecified SNOMED: 25125799 (3) Anemia ICD Codes: D64.9 - Anemia, unspecified SNOMED: 132000623 (4) UGIB (upper gastrointestinal bleed) ICD Codes: K92.2 - Gastrointestinal hemorrhage, unspecified SNOMED: 89222985 (5) Thrombocytopenia ICD Codes: D69.6 - Thrombocytopenia, unspecified SNOMED: 204607851 (6) Esophageal varices ICD Codes: I85.00 - Esophageal varices without bleeding SNOMED: 07092827 (7) Cirrhosis ICD Codes: K74.60 - Unspecified cirrhosis of liver SNOMED: 69725552 (8) Gout ICD Codes: M10.9 - Gout, unspecified SNOMED: 81291928 (9) Alcohol abuse ICD Codes: F10.10 - Alcohol abuse, uncomplicated SNOMED: 96627551 (10) Diabetes mellitus ICD Codes: E11.9 - Type 2 diabetes mellitus without complications SNOMED: 46695628 (11) Umbilical hernia ICD Codes: K42.9 - Umbilical hernia without obstruction or gangrene SNOMED: 841246880 Assessment/Plan recent EGD reviewed plan for colonoscopy cont current meds Subjective ROS Limited/Unobtainable: Yes Allergies: Coded Allergies: No Known Allergies (Verified , 01/08/19) Objective General Appearance: alert EENT: normal ENT inspection Neck: supple Cardiovascular: normal rate Respiratory/Chest: decreased breath sounds Abdomen: normal bowel sounds, non tender, soft Extremities: non-tender Meño Potter MD Jan 23, 2019 15:44
[2019-01-23 16:43] VITALS: BP 124/76
== END 2019-01-23 16:57 | disposition home or self-care (01) ==
LOC: PAN 14:57
DX: K92.2 Gastrointestinal hemorrhage, unspecified (principal); B19.20 Unspecified viral hepatitis C without hepatic coma; D64.9 Anemia, unspecified; D69.6 Thrombocytopenia, unspecified; I85.00 Esophageal varices without bleeding; M10.9 Gout, unspecified; K74.60 Unspecified cirrhosis of liver; F10.10 Alcohol abuse, uncomplicated; E11.9 Type 2 diabetes mellitus without complications
CPT/HCPCS: G0463

== ENCOUNTER 2019-01-25 19:04 | Emergency (ER) | payer MEDICARE, OTHER ==
[~2019-01-25] VITALS: Ht 175.3 cm; Wt 94.3 kg
--- NOTE | 2019-01-25 19:25 | NUR ---
ED Nurse Note: pt walked in c/o dark stool, pt states he thinks he has GI bleed and had dark tarry stool BM x2 today and feels like he needs blood transfusion. Denies SOB/CP/Pain at this time. pt AA&ox4, gcs=15, skin warm and dry, resp even and unlabored on RA, -n/v/d, abd soft nontender, ambulates w/ steady gait, will cont monitor. ERMD at the bedside.
[2019-01-25] MEDS ORDERED: Pantoprazole Inj IV ONE (19:30)
[2019-01-25 19:34] VITALS: BP 145/68
[2019-01-25 19:59] LABS: MEAN CORPUSCULAR VOLUME 94 FL (80-99); PLATELET COUNT 36 K/UL (150-450); RED BLOOD COUNT 2.24 M/UL (4.70-6.10); RED CELL DISTRIBUTION WIDTH 17.6 % (11.6-14.8); WHITE BLOOD COUNT 2.5 K/UL (4.8-10.8)
[2019-01-25 20:20] LABS: ALANINE AMINOTRANSFERASE 34 U/L (12-78); ALBUMIN 2.7 G/DL (3.4-5.0); ALBUMIN/GLOBULIN RATIO 0.6 (1.0-2.7); ALKALINE PHOSPHATASE 218 U/L (46-116); ANION GAP 6 mmol/L (5-15); ASPARTATE AMINO TRANSFERASE 43 U/L (15-37); BILIRUBIN,TOTAL 0.4 MG/DL (0.2-1.0); BLOOD UREA NITROGEN 34 mg/dL (7-18); CALCIUM 8.9 MG/DL (8.5-10.1); CARBON DIOXIDE 24 MMOL/L (21-32); CHLORIDE 113 MMOL/L (98-107); SODIUM 142 MMOL/L (136-145)
--- NOTE | 2019-01-25 20:20 | NUR ---
ED Nurse Note: PT IV attempted x2 unable to start, Charge nurse notified. ERMD notified.
[2019-01-25 20:33] LABS: POTASSIUM 6.1 MMOL/L (3.5-5.1)
[2019-01-25 20:35] LABS: HEMOGLOBIN 6.3 G/DL (14.2-18.0)
[2019-01-25 20:39] LABS: APPEARANCE,URINE CLEAR; BILIRUBIN, URINE NEGATIVE (NEGATIVE); GLUCOSE, URINE (UA) NEGATIVE (NEGATIVE); KETONES,URINE NEGATIVE (NEGATIVE); LEUKOCYTE ESTERASE ,URINE NEGATIVE (NEGATIVE); NITRITE,URINE NEGATIVE (NEGATIVE); PH,URINE 5 (4.5-8.0); PROTEIN,URINE 1+ (NEGATIVE); UROBILINOGEN,URINE 1 MG/DL (0.0-1.0)
[2019-01-25 20:40] LABS: COLOR,URINE YELLOW
--- NOTE | 2019-01-25 20:42 | NUR ---
ED Nurse Note: pt refusing IV and states he doesn't want blood transfusion tonight and wants to discuss with his primary doctor. Addendum: 01/25/19 at 2042 by LARS addendum: CARTER notified.
[2019-01-25 20:43] LABS: INR 1.1 (0.9-1.1)
[2019-01-25 20:52] VITALS: BP 140/67
--- NOTE | 2019-01-25 20:53 | NUR ---
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 pt was advised the consequences and risks by CARTER, pt verbalized understanding and agrees with plan. PT VSS, ambulatory w/ steady gait, resp even and unlabored. Pt advised to return to ED if sx continued, worsen or new sx develop.
[2019-01-26] MEDS ORDERED: Propranolol 40mg tab ORAL SCH (09:00)
--- NOTE | 2019-01-27 15:24 | Emergency Room Report ---
History of Present Illness General Chief Complaint: Gastrointestinal Bleed Source: Patient Present Illness HPI 68-year-old male presents ED for evaluation. Patient here for evaluation of weakness, tarry stools times one week. History of anemia. History of GI bleed. Denies any bright red blood per rectum. Denies any hematemesis. Denies chest pain or shortness of breath. No other aggravating relieving factors. Denies any other associated symptoms Allergies: Coded Allergies: No Known Allergies (Verified , 01/08/19) Patient History Past Medical History: DM, HTN, asthma, GERD, GI bleed Past Surgical History: none Pertinent Family History: none Social History: Denies: smoking, alcohol use, drug use Immunizations: UTD Reviewed Nursing Documentation: PMH: Agreed; PSxH: Agreed Nursing Documentation-PMH Hx Cardiac Problems: Yes Hx Hypertension: Yes Hx Asthma: Yes Hx Diabetes: Yes Hx Cancer: No Hx Gastrointestinal Problems: Yes - HX OF GI BLEED, Black stool Hx Neurological Problems: No Hx Cerebrovascular Accident: Yes - Anemia Review of Systems All Other Systems: negative except mentioned in HPI Physical Exam Vital Signs Date Time Temp Pulse Resp B/P (MAP) Pulse Ox O2 Delivery O2 Flow Rate FiO2 01/25/19 19:10 98.2 78 18 141/56 97 Room Air Sp02 EP Interpretation: reviewed, normal General Appearance: no apparent distress, alert, GCS 15, non-toxic Head: normocephalic, atraumatic Eyes: bilateral eye normal inspection, bilateral eye PERRL ENT: hearing grossly normal, normal pharynx, no angioedema, normal voice Neck: full range of motion, supple/symm/no masses Respiratory: chest non-tender, lungs clear, normal breath sounds, speaking full sentences Cardiovascular #1: regular rate, rhythm, no edema Cardiovascular #2: 2+ carotid (R), 2+ carotid (L), 2+ radial (R), 2+ radial (L) , 2+ dorsalis pedis (R), 2+ dorsalis pedis (L) Gastrointestinal: normal bowel sounds, non tender, soft, non-distended, no guarding, no rebound Rectal: deferred Genitourinary: normal inspection, no CVA tenderness Musculoskeletal: back normal, gait/station normal, normal range of motion, non- tender Neurologic: alert, oriented x3, responsive, motor strength/tone normal, sensory intact, speech normal Psychiatric: judgement/insight normal, memory normal, mood/affect normal, no suicidal/homicidal ideation Reflexes: 3+ bicep (R), 3+ bicep (L), 3+ tricep (R), 3+ tricep (L), 3+ knee (R) , 3+ knee (L) Skin: normal color, no rash, warm/dry, well hydrated Lymphatic: no adenopathy Medical Decision Making Diagnostic Impression: Primary Impression: Gastrointestinal hemorrhage Qualified Codes: K92.2 - Gastrointestinal hemorrhage, unspecified Additional Impressions: AMA Hyperkalemia, diminished renal excretion Renal failure Qualified Codes: N19 - Unspecified kidney failure ER Course Hospital Course 68-year-old M presents to ED with rectal bleeding Differential diagnoses include: UGIB, LGIB, hemorrhoids Clinical course Patient placed on stretcher. monitoring coordinator. After initial history and physical I ordered labs, IV fluids, UA Labs - no leukocytosis, Hb 6.3, K 6.1, BUN/Cr elevated Discussed findings with patient that he needs to be admitted. Patient states that he cannot stay in the hospital. 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 Will not agreed to transfusion in ED. Will not agreed to treatment in ED of his elevated potassium understands the risks of leaving. Patient has competency to make his own decisions. Signed AMA form. Dr. Stroud and Dr Potter made aware of findings, and that patient is leaving AMA feel this is a highly complex case requiring extensive working including EKG/ Rhythm strip, Xray/CT/US, Blood/urine lab work, repeat exams while in ED, and administration of strong opiates/narcotics for pain control, admission to hospital or close patient follow up. Diagnosis - GI bleed, AMA, hyperkalemia, renal failure patient left AMA Labs Test 01/25/19 19:22 01/25/19 19:30 Urine Color Yellow Urine Appearance Clear Urine pH 5 (4.5-8.0) Urine Specific [place] 1.010 (1.005-1.035) Urine Protein 1+ (NEGATIVE) Urine Glucose (UA) Negative (NEGATIVE) Urine Ketones Negative (NEGATIVE) Urine Blood Negative (NEGATIVE) Urine Nitrite Negative (NEGATIVE) Urine Bilirubin Negative (NEGATIVE) Urine Urobilinogen 1 MG/DL (0.0-1.0) Urine Leukocyte Esterase Negative (NEGATIVE) Urine RBC 0-2 /HPF (0 - 0) Urine WBC 0-2 /HPF (0 - 0) Urine Squamous Epithelial Cells None /LPF (NONE/OCC) Urine Bacteria Few /HPF (NONE) White Blood Count 2.5 K/UL (4.8-10.8) Red Blood Count 2.24 M/UL (4.70-6.10) Hemoglobin 6.3 G/DL (14.2-18.0) Hematocrit 21.0 % (42.0-52.0) Mean Corpuscular Volume 94 FL (80-99) Mean Corpuscular Hemoglobin 28.1 PG (27.0-31.0) Mean Corpuscular Hemoglobin Concent 30.0 G/DL (32.0-36.0) Red Cell Distribution Width 17.6 % (11.6-14.8) Platelet Count 36 K/UL (150-450) Mean Platelet Volume 10.2 FL (6.5-10.1) Neutrophils (%) (Auto) % (45.0-75.0) Lymphocytes (%) (Auto) % (20.0-45.0) Monocytes (%) (Auto) % (1.0-10.0) Eosinophils (%) (Auto) % (0.0-3.0) Basophils (%) (Auto) % (0.0-2.0) Differential Total Cells Counted 100 Neutrophils % (Manual) 80 % (45-75) Lymphocytes % (Manual) 17 % (20-45) Monocytes % (Manual) 2 % (1-10) Eosinophils % (Manual) 1 % (0-3) Basophils % (Manual) 0 % (0-2) Band Neutrophils 0 % (0-8) Platelet Estimate Decreased Platelet Morphology Normal Polychromasia 1+ Hypochromasia 2+ Anisocytosis 2+ Prothrombin Time 11.4 SEC (9.30-11.50) Prothromb Time International Ratio 1.1 (0.9-1.1) Activated Partial Thromboplast Time 28 SEC (23-33) Sodium Level 142 MMOL/L (136-145) Potassium Level 6.1 MMOL/L (3.5-5.1) Chloride Level 113 MMOL/L (98-107) Carbon Dioxide Level 24 MMOL/L (21-32) Anion Gap 6 mmol/L (5-15) Blood Urea Nitrogen 34 mg/dL (7-18) Creatinine 2.0 MG/DL (0.55-1.30) Estimat Glomerular Filtration Rate 40.2 mL/min (>60) Glucose Level 103 MG/DL (74-106) Calcium Level 8.9 MG/DL (8.5-10.1) Total Bilirubin 0.4 MG/DL (0.2-1.0) Aspartate Amino Transf (AST/SGOT) 43 U/L (15-37) Alanine Aminotransferase (ALT/SGPT) 34 U/L (12-78) Alkaline Phosphatase 218 U/L (46-116) Total Protein 7.0 G/DL (6.4-8.2) Albumin 2.7 G/DL (3.4-5.0) Globulin 4.3 g/dL Albumin/Globulin Ratio 0.6 (1.0-2.7) Lipase 355 U/L (73-393) Last Vital Signs Date Time Temp Pulse Resp B/P (MAP) Pulse Ox O2 Delivery O2 Flow Rate FiO2 01/25/19 20:52 98.6 78 18 140/67 98 Room Air Status: unchanged Disposition: AGAINST MEDICAL ADVICE Condition: Stable Referrals: NOT CHOSEN IPA/,REFERRING (PCP) Tello Rm MD Jan 27, 2019 15:24
== END 2019-01-25 20:52 | disposition left against medical advice (07) ==
LOC: EMR 20:01 → EDBEDREQ 20:40 → EDBEDREQSVC 20:40 → EMR 20:52
DX: K92.2 Gastrointestinal hemorrhage, unspecified (principal); E87.5 Hyperkalemia; N19 Unspecified kidney failure; E11.9 Type 2 diabetes mellitus without complications; I10 Essential (primary) hypertension; K21.9 Gastro-esophageal reflux disease without esophagitis; J45.909 Unspecified asthma, uncomplicated; Z86.73 Personal history of transient ischemic attack (TIA), and cerebral infarction without residual deficits
CPT/HCPCS: 36415; 80053; 81003; 83690; 85007; 85025; 85610; 85730; 86850; 86900; 86901; 96365; 96368; 96375; 99284